=== PATIENT | female | born 1975 | race Two or more races ===

== ENCOUNTER 2020-10-04 16:06 | Emergency (ER) | payer BC ==
[~2020-10-04] VITALS: Ht 157.5 cm; Wt 87.5 kg
[2020-10-04 16:14] VITALS: Ht 157.5 cm; Wt 87.5 kg
[2020-10-04 16:58] LABS: BASOPHIL % 1.4 % (0.2-1.3); PLATELET COUNT 297 x10^3mcL (179-408); RED CELL DISTRIBUTION WIDTH 16.3 % (12.3-17.7)
[2020-10-04 17:35] VITALS: BP 175/113
[2020-10-04 18:10] LABS: microscopic required? YES; urine erythrocyte 3+ (NEGATIVE)
== END 2020-10-04 18:55 | disposition home or self-care (01) ==
LOC: ED 16:06
PROVIDERS: Emergency Medicine
DX: N92.0 Excessive and frequent menstruation with regular cycle (principal); N83.202 Unspecified ovarian cyst, left side; N76.0 Acute vaginitis; Z88.2 Allergy status to sulfonamides

== ENCOUNTER 2020-10-26 21:17 | Emergency (ER) | payer BC ==
[~2020-10-26] VITALS: Ht 157.5 cm; Wt 85.3 kg
[2020-10-26 21:52] VITALS: BP 186/112; Ht 157.5 cm; Wt 85.3 kg
== END 2020-10-26 23:12 | disposition home or self-care (01) ==
LOC: ED 21:17
DX: H61.22 Impacted cerumen, left ear (principal); H93.8X2 Other specified disorders of left ear; Z88.2 Allergy status to sulfonamides